=== PATIENT | female | born 1945 | race Hispanic/Latino ===

== ENCOUNTER 2016-08-16 13:33 | Outpatient (CLI) | payer MEDICARE ==
[2016-08-16 14:25] LABS: Blood Urea Nitrogen 9 mg/dL (7-17)
--- NOTE | 2016-08-16 16:53 | Cat Scan Report ---
CT of the abdomen and pelvis with IV and oral contrast. History: Abdominal pain/diarrhea/vomiting and fever. Findings: The liver and spleen are normal. The gallbladder is unremarkable. The pancreas is somewhat atrophic but otherwise unremarkable. A subcentimeter cyst in the left kidney is stable. A cortical renal scar is seen in this area as well. This is also stable. Otherwise the kidneys are normal. There is no adenopathy within the retroperitoneum. There are no mesenteric inflammatory changes or bowel wall thickening. No free air is identified. There no abnormal fluid collections. There is no radiographic evidence of appendicitis. There is levoscoliosis of the lumbar spine, but no other significant bony findings are seen. Impression: 1. No acute findings. 2. Small left renal cyst with cortical scarring, stable since a similar study in October 2013.
== END 2016-08-16 13:34 | disposition home or self-care (01) ==
LOC: CT 13:33
PROVIDERS: ATTEND Family Medicine
DX: N28.1 Cyst of kidney, acquired (principal); K86.89 Other specified diseases of pancreas; N28.89 Other specified disorders of kidney and ureter; M41.86 Other forms of scoliosis, lumbar region; R19.7 Diarrhea, unspecified; R11.2 Nausea with vomiting, unspecified; R50.9 Fever, unspecified
CPT/HCPCS: 36415; 74177; 82565; 84520; Q9967

== ENCOUNTER 2018-07-08 09:14 | Outpatient (CLI) | payer MEDICARE ==
--- NOTE | 2018-07-09 11:36 | Mammography Report ---
BILATERAL DIGITAL SCREENING MAMMOGRAM with CAD : 07/08/18 09:14:00 CLINICAL: Routine screening. COMPARISON:04/10/16 FINDINGS: The breasts are heterogeneously dense, which may obscure small masses.Scattered benign calcifications. No mass, architectural distortion or suspicious calcifications. IMPRESSION: No mammographic evidence of malignancy. BI-RADS CATEGORY: 2 -- Benign RECOMMENDATION: Routine mammographic screening in one year. COMMENT: Patient follow-up letters are generated by our [employer] application.
== END 2018-07-08 09:15 | disposition home or self-care (01) ==
LOC: MAMMO 09:14
PROVIDERS: ATTEND Family Medicine
DX: Z12.31 Encounter for screening mammogram for malignant neoplasm of breast (principal)
CPT/HCPCS: 77067

== ENCOUNTER 2021-04-22 11:16 | Outpatient (CLI) | payer MEDICARE ==
--- NOTE | 2021-04-22 13:02 | Mammography Report ---
DIGITAL SCREENING MAMMOGRAM WITH CAD, 04/22/2021 CLINICAL INFORMATION / INDICATION: Routine screening mammography. SCREENING MAMMOGRAM TECHNIQUE: Digital bilateral 2D mammography was obtained in the craniocaudal and mediolateral obliqu e projections. This examination was interpreted with the benefit of Computer-Aided Detection analysis . COMPARISON: 11/15/2011 through 07/08/2018. FINDINGS: Breast Density: There are scattered areas of fibroglandular density. No dominant mass, suspicious calcifications, or architectural distortion in either breast. There are benign scattered calcifications bilaterally, including mild breast arterial calcifications. IMPRESSION: No mammographic evidence of malignancy. Follow up recommendation: Routine yearly BI-RADS Category 2: BENIGN. A "normal" or negative report should not discourage follow up or biopsy of a clinically significant f inding. A written summary of these findings will be mailed to the patient. The patient will be entered into a mammography reporting system which will generate a reminder letter for the patient's next appointmen t at the appropriate interval. The [employer] recommends yearly mammograms starting at age 40 and continuing as l kristen as a woman is in good health. Breast MRI is recommended for women with an approximate 20-25% or greater lifetime risk of breast cancer, including women with a strong family history of breast or ova ciro cancer or who have been treated for Hodgkin's disease. Signer Name: David Florez MD Signed: 04/22/2021 12:58 PM Workstation Name: [id number]
== END 2021-04-22 11:17 | disposition home or self-care (01) ==
LOC: MAMMO 11:16
PROVIDERS: ATTEND Family Medicine
DX: Z12.31 Encounter for screening mammogram for malignant neoplasm of breast (principal); N64.89 Other specified disorders of breast
CPT/HCPCS: 77067